=== PATIENT | male | born 2000 | race American Indian/Alaskan Native ===

== ENCOUNTER 2023-09-30 16:02 | Emergency (ER) | payer OTHER, SELFPAY ==
[2023-09-30 16:04] VITALS: BP 119/71
[2023-09-30 16:34] VITALS: BP 107/65
[2023-09-30 16:41] LABS: % Basophils 0.4 % (0-2); % Eosinophils 0.4 % (0-6); % Immature Granulocytes 0.3 % (0-0.5); % Lymphocytes 4.4 % (20.5-51.1); % Monocytes 3.5 % (1.7-9.3); Absolute Basophils 0.1 10^3/uL (0-0.2); Absolute Eosinophils 0.1 10^3/uL (0-0.7); Absolute Immature Granulocytes 0.1 10^3/uL (0-0.05); Absolute Lymphocytes 0.8 10^3/uL (1.2-3.4); Absolute Monocytes 0.7 10^3/uL (0.1-0.6); Absolute Neutrophils 17.4 10^3/uL (1.4-6.5); Hematocrit 45.5 % (39.0-52.0); Hemoglobin 15.5 g/dL (13.0-18.0); Mean Corp Hgb Conc. 34.1 g/dL (33.0-37.0); Mean Corpuscular Hgb 29.6 pg (27.0-31.0); Mean Corpuscular Volume 86.8 fL (80.0-94.0); Mean Platelet Volume 9.8 fL (7.4-10.4); Nucleated Red Blood Cells % 0 % (-); Platelet Count 354 10^3/uL (130-400); Red Blood Cell Count 5.24 10^6/uL (4.70-6.10); Red Cell Dist. Width 12.9 % (11.5-14.5); White Blood Cell Count 19.1 10^3/uL (4.8-10.8)
[2023-09-30 16:51] LABS: INR 1.12; PT 14.4 Sec (11.4-14.6)
[2023-09-30 16:53] LABS: APTT 31.8 Sec (23.4-35.0)
[2023-09-30 17:10] LABS: ALT (SGPT) 55 U/L (0-50); AST (SGOT) 32 U/L (17-59); Albumin 5.3 g/dl (3.5-5.0); Alkaline Phosphatase 189 U/L (38-126); Blood Urea Nitrogen 15 mg/dl (9-20); Calcium 9.8 mg/dl (8.4-10.2); Carbon Dioxide 28 mmol/L (22-30); Chloride 100 mmol/L (98-107); Glucose 112 mg/dl (70-99); Potassium 3.7 mmol/L (3.5-5.1); Sodium 139 mmol/L (135-145); Total Bilirubin 0.6 mg/dl (0.2-1.3); Total Protein 9.4 g/dl (6.3-8.2); eGFR > 60.00
--- NOTE | 2023-09-30 17:10 | ED.GENMED ---
History of Present Illness
<Marciano Munson DO - Last Filed: 09/30/23 17:13>
General
Chief Complaint: Rectal Bleeding
Source: patient
Time Seen by Provider: 09/30/23 16:39
Travel History
Have you had any contact with someone who has COVID-19?: No
Do you have any symptoms of coronavirus? Fever > 100 degrees, chills, cough, shortness of breath, sore throat, loss of taste or smell, muscle aches, or headache?: No
History of Present Illness
History of Present Illness:
43-year-old male presents to the emergency room complaining of abdominal pain, rectal bleeding. Patient had a colonoscopy today as an outpatient. He had a performed at a endoscopy center in [place]. The proceduralist was Dr. Yeh. Patient
also had some nausea vomiting postprocedure. His abdominal pain and bleeding has trailed off. Last time he passed bloody stools about an hour and a half prior to my evaluation.
Phy Exam
<Marciano Munson DO - Last Filed: 09/30/23 17:13>
Physical Exam
Physical Exam:
General: Awake, Alert, Oriented X3. No acute distress. Very thin, pale complexion
Vitals: unremarkable
Head: Atraumatic
Eyes: Pupils equal, EOMI
Throat: Airway intact, no exudates
Neck: Trachea midline
Lungs: Clear and equal b/l
Heart: Regular rate, no murmurs
Abd: Soft, mild right lower quadrant tenderness, No pulsatile mass
Neuro: Nonfocal
Skin: Warm, dry, no rash
Extremities: pulses equal b/l, no edema
Course
<Marciano Munson DO - Last Filed: 09/30/23 17:13>
Orders/Labs/Results
Orders:
Orders
09/30/23 16:30
Cardiac Monitoring- Treatment ONCE
IV Insert/Care/Rem.- Treatment PRN
Pulse Ox/spot Check [RESP] Urgent
Quantity: 1
Special Instructions: ON ROOM AIR
09/30/23 16:34
Type+Screen Urgent
Complete Blood Count/With Diff Urgent
Comprehensive Metabolic Panel Urgent
PTT Urgent
Prothrombin Time Urgent
09/30/23 17:06
Iohexol [Omnipaque] See Protocol PO NOW STA
09/30/23 17:10
CT Abd/pel W Iv And Oral Contr Urgent
Comment:
Reason For Exam: abd pain/rectal bleeding s/p colonoscopy
09/30/23 21:37
Amoxicillin 875 mg/Clav 125 mg [Augmentin 875 mg/125 mg] 1 tablet PO NOW STA
Abnormal Lab Results
09/30/23
16:34
WBC 19.1 H 10^3/uL
(4.8-10.8)
Abs Immat Gran (auto) 0.1 H 10^3/uL
(0-0.05)
Absolute Neuts (auto) 17.4 H 10^3/uL
(1.4-6.5)
Absolute Lymphs (auto) 0.8 L 10^3/uL
(1.2-3.4)
Absolute Monos (auto) 0.7 H 10^3/uL
(0.1-0.6)
Neutrophils % 91.0 H %
(42.2-75.2)
Lymphocytes % 4.4 L %
(20.5-51.1)
Glucose 112 H mg/dl
(70-99)
ALT 55 H U/L
(0-50)
Alkaline Phosphatase 189 H U/L
(38-126)
Total Protein 9.4 H g/dl
(6.3-8.2)
Albumin 5.3 H g/dl
(3.5-5.0)
09/30/23 16:34
09/30/23 16:34
Vital Signs
Initial and Last Documented VS:
Initial Vital Signs
Temp Pulse Resp BP Pulse Ox
98.7 F 61 18 119/71 99
09/30/23 16:04 09/30/23 16:04 09/30/23 16:04 09/30/23 16:04 09/30/23 16:04
Last Documented Vital Signs
Temp Pulse Resp BP Pulse Ox
98.2 F 63 18 106/70 99
09/30/23 22:05 09/30/23 22:05 09/30/23 22:05 09/30/23 22:05 09/30/23 22:05
<Kurt Acosta MD - Last Filed: 10/01/23 01:21>
Orders/Labs/Results
Orders:
Orders
09/30/23 16:30
Cardiac Monitoring- Treatment ONCE
IV Insert/Care/Rem.- Treatment PRN
Pulse Ox/spot Check [RESP] Urgent
Quantity: 1
Special Instructions: ON ROOM AIR
09/30/23 16:34
Type+Screen Urgent
Complete Blood Count/With Diff Urgent
Comprehensive Metabolic Panel Urgent
PTT Urgent
Prothrombin Time Urgent
09/30/23 17:06
Iohexol [Omnipaque] See Protocol PO NOW STA
09/30/23 17:10
CT Abd/pel W Iv And Oral Contr Urgent
Comment:
Reason For Exam: abd pain/rectal bleeding s/p colonoscopy
09/30/23 21:37
Amoxicillin 875 mg/Clav 125 mg [Augmentin 875 mg/125 mg] 1 tablet PO NOW STA
Abnormal Lab Results
09/30/23
16:34
WBC 19.1 H 10^3/uL
(4.8-10.8)
Abs Immat Gran (auto) 0.1 H 10^3/uL
(0-0.05)
Absolute Neuts (auto) 17.4 H 10^3/uL
(1.4-6.5)
Absolute Lymphs (auto) 0.8 L 10^3/uL
(1.2-3.4)
Absolute Monos (auto) 0.7 H 10^3/uL
(0.1-0.6)
Neutrophils % 91.0 H %
(42.2-75.2)
Lymphocytes % 4.4 L %
(20.5-51.1)
Glucose 112 H mg/dl
(70-99)
ALT 55 H U/L
(0-50)
Alkaline Phosphatase 189 H U/L
(38-126)
Total Protein 9.4 H g/dl
(6.3-8.2)
Albumin 5.3 H g/dl
(3.5-5.0)
09/30/23 16:34
09/30/23 16:34
Vital Signs
Initial and Last Documented VS:
Initial Vital Signs
Temp Pulse Resp BP Pulse Ox
98.7 F 61 18 119/71 99
09/30/23 16:04 09/30/23 16:04 09/30/23 16:04 09/30/23 16:04 09/30/23 16:04
Last Documented Vital Signs
Temp Pulse Resp BP Pulse Ox
98.2 F 63 18 106/70 99
09/30/23 22:05 09/30/23 22:05 09/30/23 22:05 09/30/23 22:05 09/30/23 22:05
<Kurt Acosta MD - Last Filed: 10/01/23 01:21>
*Critical Care Note
Total Time (30-74mins, 75-104mins- exclusive of procedures): Not Applicable
<Kurt Acosta MD - Last Filed: 10/01/23 01:21>
Update Note
Update Note:
Pt evaluated in ED by (colorectal surgery) - requests that pt to be discharged home on Augmentin x 7 days along with outpatient f/u at his office.
ED Attending Note
<Marciano Munson DO - Last Filed: 09/30/23 17:13>
-
Portions of this chart may have been created with voice recognition software.� Occasional wrong word or��sound alike� substitutions may have occurred due to the inherent limitations of voice recognition software.
Discharge Plan
Departure
Patient Disposition: Home (Routine Discharge)
Date of Disposition: 09/30/23
Time of Disposition: 21:35
Patient with high blood pressure during this ER visit?: No
Discharge Problem:
Ileitis, Rectal bleeding
Instructions: Bloody Stools, Adult (DC)
Prescriptions:
New
amoxicillin-pot clavulanate 875-125 mg tablet
1 tab PO Q12H Qty: 13 0RF
No Action
Pepto-Bismol 262 mg Tablet
262 mg PO DAILYPRN PRN (Reason: stomach issues)
multivit with min-folic acid [Multivitamin Gummies] 200 mcg Tablet,Chewable
2 tab PO DAILY
Sutab 1.479-0.188- 0.225 gram Tablet
0 tab PO PER PKG DIR
Patient Comments:
09/30/2023, 12 tablets evening before and 12 tablets morning of colonoscopy.
Zinc + Vitamin C
2 gummy PO DAILY
Patient Comments:
09/30/2023, each gummy contains 5 mg of zinc per pt.
Referrals:
NONE,* [Family Provider] -
Marciano Crzu MD [Active] -
Activity Restrictions/Additional Instructions:
As discussed, please follow up with referred colorectal surgeon for further evaluation and treatment.
Interventions
Interventions:
*Risk Screen - Suicide Last Done: 09/30/23 16:04
*General Assessment Last Done: 09/30/23 16:04
*Neglect/Abuse Screening Last Done: 09/30/23 16:04
*ED COVID-19 Vaccine History Last Done: 09/30/23 16:04
*Nursing Disposition Last Done: 09/30/23 22:06
NL-Udkfbf-Fesixkpjoh Assessment Last Done: 09/30/23 19:13
ED- Cardiac Assessment Last Done: 09/30/23 16:40
ED- Pulmonary Assessment Last Done: 09/30/23 16:40
Discharge Date and Time
Discharge Date/Time: 09/30/23 22:06
Print Language: TUVALUAN
[2023-09-30] MEDS: OMNIPAQUE 50 ML PO (17:16)
[2023-09-30 19:11] VITALS: BP 109/70
[2023-09-30 20:37] VITALS: BP 104/62
--- NOTE | 2023-09-30 21:27 | CON.CRS ---
Consultation
-
Performing Provider: Marciano Cruz MD
Medical History
-
History of Present Illness:
Patient is a 23-year-old male with PMH of unknown chronic diarrhea currently being worked up for Crohn's by Dr. Dean Yeh who presented today for 4-5 episodes of bloody BMs associated with significant lower abdominal pain and 2 episodes of
nausea and vomiting a few hours after undergoing a colonoscopy this morning with Dr. Yeh. Per the colonoscopy report that the patient's father had in hand, there was erythema noted in the cecum, but the terminal ileum and remainder of the
colon appeared normal. Biopsies were taken from the terminal ileum, cecum and each remaining segment for histology. Per my discussion with Dr. Yeh, he stated that the rectosigmoid area was tortuous and required extra manipulation with manual
pressure, but he did not notice any gross serosal tears on withdrawal. Pet the patient, the work-up for crohn's was started because he has been having intermittent GI distress for many years. Specifically, he gets multiple episodes of diarrhea 1-2
times per week, nonbloody, associated with abdominal cramping and pain. In between episodes, his BMs are normal and about 1 to 2/day. He believes that spicy foods and cheese can precipitate an episode. Patient and father deny any colon issues or
colon cancer in the family.
The patient called Dr. Yeh with the symptoms and he instructed the patient to go to the ED. In the ED, his wbc is 19, Hb 15, HR and BP wnl. A CT scan was done showing a dilated appendix with intraluminal fecalith versus oral contrast,
thickening of the terminal ileum and rectosigmoid, no free air, small amount of free fluid. During his stay in the ED, the patient stopped having bloody BMs and the pain significantly improved.
Past Medical History
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
Past Surgical History: Other (Inguinal hernia repairs x 2, feeding tube s/p removal, port placement x 2)
Social History
Tobacco: Non-Smoker
Alcohol: Occasional (Rarely)
Living: With Family
Family History
Family History: Other (Denies any colon issues or cancers)
Allergies / Home Medications
Allergy/AdvReac Type Severity Reaction Status Date / Time
No Known Allergies Allergy Unverified 09/30/23 16:06
�Medication �Instructions �Recorded �Confirmed �Type
Zinc + Vitamin C 2 gummy PO DAILY 09/30/23 09/30/23 History
bismuth subsalicylate 262 mg 262 mg PO DAILYPRN PRN stomach 09/30/23 09/30/23 History
tablet (Pepto-Bismol) issues
multivitamin with minerals-folic 2 tab PO DAILY 09/30/23 09/30/23 History
acid 200 mcg chewable tablet
(Multivitamin Gummies)
sodium sul 1.479 gram-potas ch 0 tab PO PER PKG DIR 09/30/23 09/30/23 History
0.188 gram-magnes sul 0.225 gram
tablet (Sutab)
Review of Systems
-
All other systems: Negative unless noted
A 10 point review of systems was completed, and was negative except as per HPI.
Physical Exam
Vital Signs
Temp 98.3 F 09/30/23 20:37
Pulse 70 09/30/23 20:37
Resp Rate 16 09/30/23 20:37
Blood pressure 104/62 09/30/23 20:37
SaO2 100 09/30/23 20:37
Lab Results / Allergies
09/30/23 16:34
09/30/23 16:34
WBC 19.1 10^3/uL (4.8-10.8) H 09/30/23 16:34
Hgb 15.5 g/dL (13.0-18.0) 09/30/23 16:34
Hct 45.5 % (39.0-52.0) 09/30/23 16:34
Plt Count 354 10^3/uL (130-400) 09/30/23 16:34
Abs Immat Gran (auto) 0.1 10^3/uL (0-0.05) H 09/30/23 16:34
Neutrophils % 91.0 % (42.2-75.2) H 09/30/23 16:34
Allergy/AdvReac Type Severity Reaction Status Date / Time
No Known Allergies Allergy Unverified 09/30/23 16:06
Physical Exam
General: Well Developed, No Apparent Distress and Comfortable
HEENT: Normocephalic and Atraumatic
Respiratory: Non Labored Respirations
GI: Soft, Non Tender and Tender (Minimally tender with deep palpation in the RLQ to suprapubic region; no rebound or guarding)
Skin: Warm and Dry
Neuro: Awake, Alert and AO x 3
Data Reviewed
-
CT Scan: Image Personally Visualized and interpreted, Discussed with Physician, Discussed with Patient and Discussed with Family
Labs: Labs Reviewed by me, Discussed with Physician, Discussed with Patient and Discussed with Family
Assessment / Plan
-
23-year-old male with PMH of unknown chronic diarrhea currently being worked up for Crohn's by Dr. Dean Yeh who presented today for 4-5 episodes of bloody BMs associated with significant lower abdominal pain and 2 episodes of nausea and
vomiting a few hours after undergoing a colonoscopy this morning with Dr. Yeh. Per the colonoscopy report that the patient's father had in hand, there was erythema noted in the cecum, but the terminal ileum and remainder of the colon appeared
normal. Biopsies were taken from the terminal ileum, cecum and each remaining segment for histology. Wbc 19, Hb 15, HR and BP wnl. A CT scan was done showing a dilated appendix with intraluminal fecalith versus oral contrast, thickening of the
terminal ileum and rectosigmoid, no free air, small amount of free fluid. During his stay in the ED, the patient stopped having bloody BMs and the pain significantly improved.
�Had extensive discussion with patient and patient's father regarding results of CT scan; thickening of colon and terminal ileum is congruent with where biopsies were taken and could account for this; other possibilities include inflammation or
infection, as well as post-polypectomy syndrome, but these seem less likely based on having had a recent colonoscopy and on the method of biopsy (all cold forceps); regarding the dilated appendix, I explained that with an elevated WBC and dilated
appendix with appendicolith, the likelihood of appendicitis is high; however, abdominal pain associated with appendicitis rarely improves on its own without treatment, therefore making this CT scan finding more likely reactive as a result of recent
colonoscopy
� I explained the safest course of action would be to admit the patient and start antibiotics, monitor overnight and repeat the WBC in the a.m.; however, patient and father confirmed that the symptoms have essentially resolved and that they live
close to the hospital and would return promptly if any symptoms returned or worsened; therefore, I would prescribe a week course of Augmentin in case there is a true component of appendicitis; I explained that the patient should return to the ED if
any symptoms, such as fever, N/V, abdominal pain or bloody BMs returned; patient and father understood and were in agreement
� Continue regular diet
� P.o. Augmentin x 7 days
� Follow-up with me as needed for any recurrent symptoms or concerns
[2023-09-30] MEDS: AUGMENTIN 875 MG/125 MG 1 TABLET PO (22:02)
[2023-09-30 22:05] VITALS: BP 106/70
== END 2023-09-30 22:06 | disposition home or self-care (01) ==
LOC: EMR 16:02
PROVIDERS: EMERGENCY PHYSICIAN Emergency Medicine; OTHER PHYSICIAN Surgery
DX: K62.5 Hemorrhage of anus and rectum (principal); K52.9 Noninfective gastroenteritis and colitis, unspecified
CPT/HCPCS: 99285; 74177; 80053; 85025; 85610; 85730; 86850; 86900; 86901; Q9967